=== PATIENT | male | born 1940 | race Caucasian/White ===

== ENCOUNTER 2022-05-11 11:22 | Outpatient (CLI) | payer MEDICARE, SELFPAY ==
[2022-05-11 17:56] LABS: Chloride* 108 mmol/L (96-114); Potassium* 4.7 mmol/L (3.6-5.1); Sodium* 140 mmol/L (135-149)
[2022-05-11 17:59] LABS: Creatinine* 1.4 mg/dL (0.5-1.5); Estimated Glomerular Filt Rate 51 ml/min
[2022-05-11 18:00] LABS: Blood Urea Nitrogen* 28 mg/dL (7-30); Calcium* 8.8 mg/dL (8.4-10.6); Carbon Dioxide* 27 mmol/L (20-32); Glucose* 80 mg/dL (60-115)
== END 2022-05-11 11:23 | disposition home or self-care (01) ==
LOC: LONREF 11:25
PROVIDERS: PCP Family Medicine; Visit Provider Family Medicine
DX: Z01.818 Encounter for other preprocedural examination (principal)
CPT/HCPCS: 80048

== ENCOUNTER 2022-05-31 09:31 | Outpatient (CLI) | payer MEDICARE, SELFPAY | END 2022-05-31 09:32 | disposition home or self-care (01) | PROVIDERS: PCP Family Medicine; Visit Provider Orthopaedic Surgery | DX: Z20.822 Contact with and (suspected) exposure to COVID-19 (principal); Z01.818 Encounter for other preprocedural examination | CPT/HCPCS: 36415; 86850; 86900; 86901; 87635 ==

== ENCOUNTER 2022-06-01 10:12 | Day surgery (SDC) | payer MEDICARE, SELFPAY ==
[2022-06-01] VITALS (22 sets, daily range): BP systolic 86–179; BP diastolic 46–100; PULSE 41–71; RESP 8–16; TEMP 35.7–36.8; O2SAT 96–100; BMI 26.7
[2022-06-01] MEDS: OXYCODONE (CR) 10 MG TAB.ER.12H PO (10:35)
[2022-06-01] MEDS: CELECOXIB 200 MG CAPSULE PO ×2 (10:35→21:12)
[2022-06-01] MEDS: ACETAMINOPHEN 500 MG TABLET 1000 MG PO ×2 (10:35→23:33)
[2022-06-01] MEDS: LACTATED RINGERS 1000 ML 1,000 ML 100 ML IV ×3 (11:00→15:45)
--- NOTE | 2022-06-01 12:06 | SUR.PREOP ---
TIME?OUT:?1100 PT/RN/MDA?VERIFICATION?OF?SURGICAL?SITE,?PROCEDURE,?AND?CONSENT OBTAINED?PRIOR?TO?INVASIVE?PROCEDURE.
[2022-06-01] MEDS: MIDAZOLAM HCL 1 MG/ML inj IVP (12:30)
[2022-06-01] MEDS: fentaNYL 100 MCG/2 ML inj IVP (12:30)
--- NOTE | 2022-06-01 12:36 | P.NB_ITS ---
Nerve Block Nerve Block Time Seen by Provider: 12:36 Date Seen: 06/01/22 Type of block requested by surgeon for post-operative analgesia: SKYLER/LFCN Side: left Time out performed: Yes Verification of patient name: Yes Verification of date of : Yes Site marking: site marked Name of person performing procedure: Avila Continuous monitoring Was continuous monitoring of O2 sat, B/P, medical record librarians teacher, recorded every 15 minutes?: Yes Procedure Checklist: sterile prep, needles and gloves Ultrasound guided. Images saved: Yes Medications given in 5ml increments after negative aspiration: Ropivicaine %: 0.5 mL: 30 Needle gauge: 20 Decadron (mg): 10 Precedex (mcg): 25 Patient tolerated procedure well: Yes Additional comments: Needle noted adjacent to nerve Block Charges Block Charge (with Pro Fee): Other Periph Nerve Block Use of Ultrasound Machine for Block: Yes- US Guidance/pain block
--- NOTE | 2022-06-01 12:41 | SUR.PREOP ---
TIME?OUT:?1215 PT/RN/MDA?VERIFICATION?OF?SURGICAL?SITE,?PROCEDURE,?AND?CONSENT OBTAINED?PRIOR?TO?INVASIVE?PROCEDURE.
--- NOTE | 2022-06-01 12:55 | CRLHL7_ITS ---
For Patients: As a result of the Cures Act, medical imaging exams and procedure reports are released immediately into your electronic medical record. You may view this report before your referring provider. If you have questions, please contact your health care provider. Indication: Hip replacement surgery Technique: AP hip fluoroscopic images. Fluoroscopy time 91.6 seconds. Findings/Impression: Hardware from a left total hip arthroplasty is in satisfactory position. Dictated by Milo Pal MD @ 06/02/2022 3:04:53 PM (Electronically Signed)
[2022-06-01] MEDS: CEFAZOLIN 2 GM INJ IVP (13:30)
[2022-06-01] MEDS: TRANEXAMIC ACID 100 MG/ML INJ 1000 MG IV (13:35)
--- NOTE | 2022-06-01 15:32 | CRLHL7_ITS ---
For Patients: As a result of the Century Cures Act, medical imaging exams and procedure reports are released immediately into your electronic medical record. You may view this report before your referring provider. If you have questions, please contact your health care provider. Indication: HITESH POST OP Technique: AP hip centered pelvis and lateral view left hip. Findings/Impression: Hardware from a left total hip arthroplasty is in satisfactory position. Bone alignment is normal. No sign of acute fracture. Postop changes are within normal limits. Chronic ossicle adjacent to the right greater trochanter and heterotopic calcification along the proximal right thigh. Dictated by Milo Pal MD @ 06/02/2022 3:05:52 PM (Electronically Signed)
--- NOTE | 2022-06-01 15:35 | PM.ORPRC ---
Procedure Note Date of procedure: 06/01/22 Procedure: SURGEON: Jerry Gomes MD POST FORM REMOVER: Kathleen Pemberton PA-C, CALVIN Obrien PREOPERATIVE DIAGNOSIS: Left hip osteoarthritis POSTOPERATIVE DIAGNOSIS: Left hip osteoarthritis NAME OF OPERATION: Left total hip arthroplasty IMPLANTS: 1. [employer] [place] 58 sector ingrowth cup 2. 36 x 58 +4 neutral polyethylene 3. Actis # 9 standard collared ingrowth stem 4. 36 + 1.5 ceramic femoral head ANESTHESIA: General ESTIMATED BLOOD LOSS: 500 cc COMPLICATIONS: None SPECIMENS: None DRAINS: None PREOPERATIVE ANTIBIOTICS: Ancef 2 grams INDICATIONS: The patient is a 81-year-old with a longstanding history of severe, unrelenting left hip pain secondary to end-stage left hip osteoarthritis. Despite appropriate nonoperative management, including activity modification, use of an assist device, anti-inflammatories, [id number] pain medication, physical therapy and injections, they continue to have pain and disability. Operative intervention was offered. The risks, benefits and expected outcomes were discussed in detail. These included but were not limited to: Infection, bleeding, injury to blood vessel or nerve, venous thromboembolism. All questions were answered to their satisfaction. Use of an health information assistant was necessary throughout the case for patient positioning and safety, soft tissue retraction and closure. PROCEDURE: The patient was placed supine on the [place] table. General anesthesia was administered. The health information assistant made sure the patient was properly positioned. The left hip was prepped and draped in the usual sterile fashion. The image intensifier was brought in for a perfect AP pelvis and a perfect double tear drop AP view of each hip which were used for intraoperative templating with our fluoroscopic guide. An oblique incision was made 3 cm distal and 3 cm lateral to the anterior superior iliac spine. The health information assistant retracted the soft tissues to protect them. Subcutaneous dissection was taken with electrocautery to the superficial fascia. The fascia was divided in line with the incision. Blunt dissection was carried medially to the tensor fascia sanjay and sartorius interval. Deep dissection was carried with electrocautery. The circumflex vessels were cauterized and divided. The capsule was exposed and then divided in a T-fashion, tagged with #1 Ethibond sutures. Retractors were placed in the joint, held by the health information assistant. The corkscrew was placed in the femoral head. The neck cut was made in the subcapital region. We made a second neck cut more distal. The napkin ring of bone was removed. The femoral head was removed intact. Acetabular retractors were placed, held by the health information assistant. The labrum was sharply debrided. The capsule was released. The 43 mm reamer was used to the true medial wall. We then enlarged in 2 mm increments using the image intensifier for our reamer placement. We impacted the cup which had excellent purchase. We placed the hole eliminator and the polyethylene. Attention was then turned to the proximal femur. The limb was placed in 140 degrees of external rotation, maximum extension and adduction. A significant amount of time was spent releasing the capsule to allow us to deliver the femur into the wound and complete the femoral side safely. Retractors were held by the health information assistant throughout the femoral preparation. The box sealing inspector and canal finder were used. Broaches were used to a stable size. The calcar reamer was used. Trial components were placed. The hip was reduced and was found to be stable with appropriate soft tissue tension. Length and offset had been nicely restored using the image intensifier and our fluoroscopic guide. Trial components were removed. The stem was impacted. We placed the femoral head. Again, the hip was reduced and was found to be stable with appropriate soft tissue tension. Length and offset had been nicely restored. The health information assistant did a three minute dilute Betadine solution soak. The health information assistant irrigated the wound with 3 liters of normal saline via pulse lavage. The health information assistant repaired the anterior capsule with a #1 Vicryl and our previously placed Ethibond sutures. The health information assistant closed the fascia over the tensor fascia sanjay with a #1 PDO Stratafix, subcutaneous tissues with 2-0 Vicryl, skin with a running 3-0 Stratafix and glue. A dry dressing was applied by the health information assistant. Sponge and needle counts were correct x 2. The patient tolerated the procedure well; there were no apparent complications. They were awakened and extubated in the operating room, sent to the Post-Anesthesia Care Unit in satisfactory condition. PLAN: 1. The patient will be mobilized with physical therapy, weight-bearing as tolerates 2. Xarelto x 5 days then aspirin x 30 days will be used for DVT prophylaxis 3. The patient will be discharged once medically appropriate
--- NOTE | 2022-06-01 16:30 | W.ANESCHARGE ---
Anesthesia Charges Start Date/Time Anesthesia Start Date: 06/01/22 Anesthesia Start Time: 13:19 Stop Date/Time Anesthesia Stop Date: 06/01/22 Anesthesia Stop Time: 16:24 Summary Emergency: No Extremes of Age: Over 71-CPT 99558
--- NOTE | 2022-06-01 16:56 | PM.IMCN1 ---
Date of Consult Consult date: 06/01/22 Requesting Physician: Orthopedics Primary Care Provider: Kostas Carty MD Consult Narrative Narrative: HOSPITALIST CONSULT Hospital Day # 1 Post Op Day # 0 SURGEON:? Jerry Gomes MD NAME OF OPERATION:? Left total hip arthroplasty ANESTHESIA:? General ESTIMATED BLOOD LOSS: ? 500 cc COMPLICATIONS:? None SPECIMENS:? None DRAINS:? None PREOPERATIVE ANTIBIOTICS:? Ancef 2 grams The hospital medicine team was asked by Orthopedic surgery team to manage the patient's intraoperative arrhythmia, history of AAA repair, coronary artery disease. I updated the [facility] histories and Medications and Allergies in the Expanse tabs REVIEW OF SYSTEMS: 12-point ROS completed with patient and negative unless otherwise stated in HPI or below. PHYSICAL EXAM: CODE STATUS: FULL CODE CONSTITUTIONAL: Patient was uncomfortable upon my arrival to the room. He was describing a sensation of needing to burp. Was not sure if he was nauseated. He also was complaining of worsening pain. VITAL SIGNS: see record. HEENT: Normocephalic, atraumatic. PERRL, EOMI, conjunctivae pink, no scleral icterus. Ears and nose externally normal. Pharynx normal. NECK: No JVD. No carotid bruit, no thyromegaly, no adenopathy. CHEST: Clear to auscultation bilaterally - moving air bilaterally. No wheezes. HEART: No harsh murmurs. S1/S2. ABDOMEN: Flat, soft, nontender. Normal bowel sounds. Moderately obese. EXTREMITIES: No edema. MUSCULOSKELETAL: Surgical site is dry. NEURO: Cranial nerves intact. Normal affect. No gross deficits. Speech intelligible. SKIN: No rashes, petechiae, concerning changes PSYCHIATRIC: Euthymic. INVESTIGATIONS: EMR Reviewed Portable chest x-ray, serial ECGs, labs were all obtained. No active ischemia or conduction delay or arrhythmia were noted. One dose of nitro in addition to Maalox and pain management per pursued. He is on telemetry. There has been no further episodes he improved throughout the evening. [facility]; consider 2 night stay. Consider continuing telemetry and or discharge on monitor. DVT: Agree with ortho plan for DVT prevention GI: PO intake [facility] Medical History (Updated 06/01/22 @ 20:36 by Harleen Pedraza MD) Anxiety (03/19/09) Degenerative disc disease, cervical DJD (degenerative joint disease) of knee Hyperlipidemia Hypogonadism in male Right inguinal hernia Spinal stenosis of lumbar region Surgical History (Updated 06/01/22 @ 20:27 by Harleen Pedraza MD) History of colonoscopy Status post abdominal aortic aneurysm (AAA) repair (05/05/18) Status post cataract extraction Status post coronary artery stent placement Family History Brother CHF (congestive heart failure) Mother Lung cancer Social History (Updated 06/01/22 @ 20:23 by Harleen Pedraza MD) 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 Smoking Status: Never smoker Do you use any of these nicotine containing products: None How often do you have a drink containing alcohol: 2-4 times a month Alcohol type: wine How many standard drinks containing alcohol do you have on a typical day: 1 or 2 How often do you have six or more drinks on one occasion: Never AUDIT-C Alcohol total score: 2 Non-prescribed substance use: denies use Caffeine: Yes (coffee, 1-2 cups/day) Meds Home Medications and Allergies Home Medications Medication Instructions Recorded Confirmed Type acetaminophen 650 mg 1,300 mg PO HS 05/11/22 06/01/22 History tablet,extended release alfuzosin 10 mg tablet,extended 10 mg PO DAILY 05/11/22 06/01/22 History release 24 hr atorvastatin 40 mg tablet 40 mg PO HS 05/11/22 06/01/22 History carvedilol 6.25 mg tablet 6.25 mg PO BID 05/11/22 06/01/22 History citalopram 40 mg tablet 40 mg PO DAILY 05/11/22 06/01/22 History finasteride 5 mg tablet 5 mg PO DAILY 05/11/22 06/01/22 History nitroglycerin 0.4 mg sublingual 0.4 mg sublingual Q5M PRN 05/11/22 06/01/22 History tablet psyllium husk 0.52 gram capsule 0.52 g PO DAILY 05/11/22 06/01/22 History famotidine 20 mg tablet 20 mg PO DAILY 06/01/22 06/01/22 History losartan 25 mg tablet 25 mg PO DAILY 06/01/22 06/01/22 History Allergies Allergy/AdvReac Type Severity Reaction Status Date / Time No Known Allergies Allergy Verified 06/01/22 10:36 Exam Const: Vital Signs, click to edit/add: Vital Signs - 24 hr 06/01/22 10:54 06/01/22 12:30 06/01/22 12:35 Temperature 98.0 F 98.2 F 98.2 F Pulse Rate 70 48 L 54 L Respiratory Rate 16 16 16 Blood Pressure 149/100 H 179/95 H 115/72 Pulse Oximetry 96 98 98 Oxygen Delivery Me thod Room Air Nasal Cannula Oxygen Flow Rate 3 06/01/22 12:40 06/01/22 16:19 06/01/22 16:25 Temperature 97.1 F L Pulse Rate 44 L 58 L 52 L Respiratory Rate 16 16 12 Blood Pressure 124/69 116/57 L 100/52 L Pulse Oximetry 98 97 100 Oxygen Delivery Me thod OxyMask Oxygen Flow Rate 6 06/01/22 16:30 06/01/22 16:35 06/01/22 16:40 Temperature Pulse Rate 48 L 47 L 47 L Respiratory Rate 12 14 14 Blood Pressure 102/50 L 97/46 L 104/53 L Pulse Oximetry 100 97 98 Oxygen Delivery Me thod Oxygen Flow Rate 06/01/22 16:45 06/01/22 16:50 Temperature Pulse Rate 45 L 45 L Respiratory Rate 12 12 Blood Pressure 99/77 100/64 Pulse Oximetry 98 97 Oxygen Delivery Me thod Oxygen Flow Rate Assessment and Plan Assessment and plan (1) Status post total hip replacement, left: Problem comment: Hospital medicine team is happy to follow this patient through to discharge. Patient was bradycardic and potentially experienced second-degree heart block during surgery yesterday. Dropped QRS complexes were noted during surgery. He had some relative hypotension as well. Postoperatively he was having some nausea and chest discomfort. Serial EKGs, chest x-ray, labs were all followed. No concerns. He is on telemetry. He did receive 1 dose of nitro which may or may not have alleviated his symptoms. I will recommend to the day team that he discharge on a heart monitor given his history of coronary artery disease without known conduction or valvular abnormalities. Status: Acute (2) Arrhythmia: Problem comment: Some concern for heart block during surgery. He is on telemetry. I monitored ECGs postop. Recommend environmental monitoring technician at discharge. We did order echo should the day team feel this is necessary. Status: Acute (3) Arteriosclerotic cardiovascular disease: Problem comment: Status post [place], coronary artery stents x3 in 2017. Status: Acute (4) Hypertension: Problem comment: Coreg 6.25 mg b.i.d., losartan 12.5 mg daily Status: Acute (5) BPH (benign prostatic hyperplasia): Problem comment: Uroxatral and finasteride, dual therapy Status: Acute (6) Depression: Problem comment: Mild anxiety, Celexa 40 mg daily Status: Acute (7) GERD (gastroesophageal reflux disease): Problem comment: Pepcid and Zantac Status: Acute
[2022-06-01] MEDS: HYDROmorphone 0.5 mg/0.5 ml inj IVP (18:18)
[2022-06-01] MEDS: MAG HYDROX/ALUMINUM HYD/SIMETH 30 ML ORAL.SUSP PO (18:19)
--- NOTE | 2022-06-01 18:29 | CRLHL7_ITS ---
For Patients: As a result of the Cures Act, medical imaging exams and procedure reports are released immediately into your electronic medical record. You may view this report before your referring provider. If you have questions, please contact your health care provider. INDICATION: Chest pressure. TECHNIQUE: Chest 1 views. COMPARISON: None. FINDINGS: Cardiovascular and mediastinum: Heart size and vasculature are normal in caliber and appearance. Lungs and pleural spaces: Lungs are clear. No sign of pleural effusion. No pneumothorax. Bones and soft tissues: No significant findings. IMPRESSION: No acute or significant findings. Dictated by Tiff Garner MD @ 06/01/2022 6:49:09 PM (Electronically Signed)
[2022-06-01] MEDS: ONDANSETRON 2 MG/ML inj 4 MG IVP (18:32)
[2022-06-01] MEDS: NITROGLYCERIN 0.4 MG TAB.SUBL SUBLINGUAL (18:33)
[2022-06-01 18:54] LABS: HCO3 VBG 25 mmol/L (21-28); Ionized Calcium* 1.13 mmol/L (1.11-1.30); PCO2 VBG 41 mmHG (40-50)
[2022-06-01 18:55] LABS: Hematocrit 32.3 % (37.0-53.0); Hemoglobin* 10.7 gm/dL (13.5-17.5); Mean Corpuscular HGB Conc 33 gm/dL (32-36); Mean Corpuscular Hemoglobin 32 pg (26-34); Mean Corpuscular Volume 97 fL (80-100); Platelet Count* 98 K/uL (140-440); Red Blood Count 3.34 m/uL (4.30-5.90); White Blood Count* 7.96 K/uL (4.50-11.00)
[2022-06-01 18:56] LABS: Slide Review Reflex No
[2022-06-01 19:18] LABS: Chloride* 109 mmol/L (96-114); Potassium* 4.5 mmol/L (3.6-5.1); Sodium* 135 mmol/L (135-149)
[2022-06-01 19:21] LABS: Blood Urea Nitrogen* 28 mg/dL (7-30); Carbon Dioxide* 23 mmol/L (20-32); Creatinine* 1.4 mg/dL (0.5-1.5); Estimated Glomerular Filt Rate 51 ml/min
[2022-06-01 19:22] LABS: Calcium* 8.4 mg/dL (8.4-10.6); Glucose* 161 mg/dL (60-115); Magnesium* 1.6 mg/dL (1.5-2.6)
[2022-06-01 19:30] LABS: NT Pro B Type NatriureticPept* 441 PG/mL (0-450)
[2022-06-01] MEDS: LACTATED RINGERS 1000 ML 1,000 ML 75 ML IV (19:42)
[2022-06-01 19:50] LABS: Troponin I* < 0.01 ng/mL (0.01-0.04)
[2022-06-01] MEDS: LACTATED RINGERS 1000 ML 1,000 ML 500 ML IV (20:51)
[2022-06-01] MEDS: ATORVASTATIN CALCIUM 40 MG TABLET PO (21:11)
[2022-06-01] MEDS: SENNOSIDES 1 TAB TABLET 2 TAB PO (21:12)
[2022-06-01] MEDS: CEFAZOLIN 2 GM in 0.9 % SODIUM CHLORIDE Mini-bag 100 ML IVPB (21:18)
--- NOTE | 2022-06-01 23:28 | PC.NURSE ---
shift [id number] Pt this shift arrived from surgery at 1705, pt very lethargic and unable to answer questions. Eyes remained closed, responding with a humming or soft spoken mumbling. Pt was bradycardic with readings between 39-45. Pressures soft at around 96/51 and RR low. Stable on RA at 99%. MD ordered 12 lead, shows normal sinus justin. Pt began c/o of chest pain and feeling like there was a burp stuck, pt point at middle of sternum. Chest xray ordered and showed no abnormalities. Nitroglycerin x1 given with, Dilaudid, Zofran and Maalox, and fluid bolus (see eMAR). pt then resting comfortably. Sql Dba or other RN stayed in the room with pt until stabilized. Around 1930 began holding a conversation and requesting food. While scenario writer talking to pt, pt began swatting at the air in front of him and stated he sees flies or little black dots. Episode lasted about 20min. Updated MD on floaters. Pt able to move legs and adjust self in bed. Denies needing to use the restroom and has remained in bed. Pt declined scheduled tylenol and refuses narcotic pain meds. Discussed fears of addiction r/t narcotics. Sql Dba recognized fears as valid and explained they are there as needed, and that alternative methods can be used first but, highly recommend taking something stronger prior to PT in the morning so that pt may fully participate. Pt agreeable but still hesitant.
[2022-06-02 03:00] VITALS: BP 134/59; PULSE 60; RESP 18; TEMP 36.2; O2SAT 99
[2022-06-02] MEDS: CEFAZOLIN 2 GM in 0.9 % SODIUM CHLORIDE Mini-bag 100 ML IVPB (04:13)
[2022-06-02] MEDS: 0.9 % SODIUM CHLORIDE 500 ML IV (04:48)
--- NOTE | 2022-06-02 05:16 | PC.NURSE ---
[id number]: Patient pleasant and cooperative. Rates pain /. Declined PRN pain medication. Dressing to L. hip C/D/I. CMS intact. A1,walker,GB. Tolerates well. Active ice to op site. Low urine output of 200, bladder scan at 0430 for 30mL. 500 fluid bolus initiated. Denies N/V. Denies chest pain or pressure. VSS.
[2022-06-02] MEDS: ACETAMINOPHEN 500 MG TABLET 1000 MG PO (05:46)
--- NOTE | 2022-06-02 06:41 | W.ANESCHARGE ---
Anesthesia Charges Start Date/Time Anesthesia Start Date: 06/01/22 Anesthesia Start Time: 13:19 Stop Date/Time Anesthesia Stop Date: 06/01/22 Anesthesia Stop Time: 16:24 Summary Emergency: No Extremes of Age: Over 71-CPT 27793
[2022-06-02 06:58] LABS: HCO3 VBG 23 mmol/L (21-28); Lactate* 2.7 mmol/L (0.5-1.9); PCO2 VBG 47 mmHG (40-50); PO2 VBG 39.5 mmHG (25-47); pH VBG 7.304 (7.32-7.43)
[2022-06-02 07:00] VITALS: BP 138/77; PULSE 65; PULSE 76; RESP 18; TEMP 36.2; O2SAT 96
[2022-06-02 07:05] LABS: Hematocrit 28.2 % (37.0-53.0); Hemoglobin* 9.7 gm/dL (13.5-17.5); Mean Corpuscular HGB Conc 34 gm/dL (32-36); Mean Corpuscular Hemoglobin 33 pg (26-34); Mean Corpuscular Volume 97 fL (80-100); Platelet Count* 91 K/uL (140-440); White Blood Count* 8.08 K/uL (4.50-11.00)
[2022-06-02 07:20] LABS: Slide Review Reflex No
[2022-06-02 07:25] LABS: Chloride* 107 mmol/L (96-114)
[2022-06-02 07:26] LABS: Potassium* 4.6 mmol/L (3.6-5.1); Sodium* 135 mmol/L (135-149)
[2022-06-02 07:28] LABS: Creatinine* 1.6 mg/dL (0.5-1.5); Est. Creatinine Clearance* 44.01; Estimated Glomerular Filt Rate 43 ml/min
[2022-06-02 07:29] LABS: Blood Urea Nitrogen* 36 mg/dL (7-30); Calcium* 8.1 mg/dL (8.4-10.6); Carbon Dioxide* 21 mmol/L (20-32); Glucose* 173 mg/dL (60-115)
[2022-06-02 07:45] LABS: Troponin I* < 0.01 ng/mL (0.01-0.04)
[2022-06-02 07:57] LABS: Thyroid Stimulating Hormone* 0.733 uIU/mL (0.270-4.20)
[2022-06-02] MEDS: SENNOSIDES 1 TAB TABLET 2 TAB PO (09:29)
[2022-06-02] MEDS: FAMOTIDINE 20 MG TABLET PO (09:29)
[2022-06-02] MEDS: RIVAROXABAN 10 MG TABLET PO (09:29)
[2022-06-02] MEDS: CITALOPRAM HYDROBROMIDE 20 MG TABLET 40 MG PO (09:30)
[2022-06-02] MEDS: FINASTERIDE 5 MG TABLET PO (09:31)
--- NOTE | 2022-06-02 09:49 | PM.ORPN ---
Subjective Subjective Time Seen by Provider: 08:30 Date Seen: 06/02/22 Principal diagnosis: Status post left hip replacement Interval history: Rodrick is comfortable at rest this morning. He has not gotten out of bed and ambulated yet. He had an intraop a rhythm me a and bradycardia. He dropped QRS complexes. He therefore may or may not discharge today. Upon discharge she plans to go home, he will have assistance in the home. Ortho Exam Narrative Exam Narrative: Alert and oriented x3. Patient is in no acute distress. Converses without labored breathing. Hearing is grossly intact. Delete that Examination of the left hip shows ecchymosis is present on both sides of the dressing. Dressing is intact. Mild anterior thigh pain with palpation. Minimal soft tissue edema about the left hip. CMS is intact left lower extremity. Bilateral calves are soft and nontender. Const Vital Signs, click to edit/add: Vital Signs - 24 hr 06/01/22 10:54 06/01/22 12:30 06/01/22 12:35 Temperature 98.0 F 98.2 F 98.2 F Pulse Rate 70 48 L 54 L Pulse Rate [Left Pulse Oximeter] Respiratory Rate 16 16 16 Blood Pressure 149/100 H 179/95 H 115/72 Blood Pressure [Right Arm] Pulse Oximetry 96 98 98 Oxygen Delivery Method Room Air Nasal Cannula Oxygen Flow Rate 3 06/01/22 12:40 06/01/22 16:19 06/01/22 16:25 Temperature 97.1 F L Pulse Rate 44 L 58 L 52 L Pulse Rate [Left Pulse Oximeter] Respiratory Rate 16 16 12 Blood Pressure 124/69 116/57 L 100/52 L Blood Pressure [Right Arm] Pulse Oximetry 98 97 100 Oxygen Delivery Method OxyMask Oxygen Flow Rate 6 06/01/22 16:30 06/01/22 16:35 06/01/22 16:40 Temperature Pulse Rate 48 L 47 L 47 L Pulse Rate [Left Pulse Oximeter] Respiratory Rate 12 14 14 Blood Pressure 102/50 L 97/46 L 104/53 L Blood Pressure [Right Arm] Pulse Oximetry 100 97 98 Oxygen Delivery Method Oxygen Flow Rate 06/01/22 16:45 06/01/22 16:50 06/01/22 19:27 Temperature 97.2 F L Pulse Rate 45 L 45 L 51 L Pulse Rate [Left Pulse Oximeter] Respiratory Rate 12 12 Blood Pressure 99/77 100/64 Blood Pressure [Right Arm] Pulse Oximetry 98 97 Oxygen Delivery Method Oxygen Flow Rate 06/01/22 17:30 06/01/22 17:45 06/01/22 18:00 Temperature 96.2 F L Pulse Rate Pulse Rate [Left Pulse Oximeter] 41 L 43 L 44 L Respiratory Rate 9 L 9 L 10 L Blood Pressure Blood Pressure [Right Arm] 97/54 L 96/52 L 108/58 L Pulse Oximetry 99 99 97 Oxygen Delivery Method Room Air Room Air Room Air Oxygen Flow Rate 06/01/22 18:15 06/01/22 18:45 06/01/22 17:05 Temperature 98.2 F Pulse Rate 43 L Pulse Rate [Left Pulse Oximeter] 44 L 49 L Respiratory Rate 10 L 12 Blood Pressure Blood Pressure [Right Arm] 105/48 L 86/50 L 96/51 L Pulse Oximetry 98 Oxygen Delivery Method Room Air Room Air Room Air Oxygen Flow Rate 06/01/22 19:00 06/01/22 20:00 06/01/22 21:55 Temperature Pulse Rate Pulse Rate [Left Pulse Oximeter] 48 L 56 L 71 Respiratory Rate 8 L 9 L 12 Blood Pressure Blood Pressure [Right Arm] 102/49 L 112/66 104/62 Pulse Oximetry 100 100 100 Oxygen Delivery Method Room Air Nasal Cannula Nasal Cannula Room Air Oxygen Flow Rate 5 1 06/01/22 23:00 06/01/22 23:00 06/01/22 23:00 Temperature 96.9 F L 96.9 F L Pulse Rate 62 58 L Pulse Rate [Left Pulse Oximeter] 62 Respiratory Rate 16 16 Blood Pressure Blood Pressure [Right Arm] 120/69 120/69 Pulse Oximetry 100 Oxygen Delivery Method Room Air Room Air Oxygen Flow Rate 06/02/22 03:00 06/02/22 07:00 06/02/22 07:00 Temperature 97.1 F L 97.1 F L Pulse Rate Pulse Rate [Left Pulse Oximeter] 60 76 76 Respiratory Rate 18 18 18 Blood Pressure Blood Pressure [Right Arm] 134/59 L 138/77 Pulse Oximetry 99 96 Oxygen Delivery Method Room Air Room Air Oxygen Flow Rate 0 Assessment and Plan Assessment and plan (1) Status post total hip replacement, left: Problem details: 06/01/2022 Status: Acute Assessment and Plan: Plan for discharge is today to home if they meet discharge criteria. DVT prophylaxis includes Xarelto 10 mg daily for total of 5 days, then aspirin 81 mg twice daily for 30 days, Ananda stockings x1 month may remove for 1 hr per day, frequent ambulation Remove dressing 1 week. Observe wound and phone Orthopedics with any questions or concerns Use Ice on operative hip unrestricted. Return to clinic in 1 week with PA for a wound check Return to clinic in [address] Gomes Minimize narcotic use. Wean off and discontinue soon as possible. Activities as tolerated. No strenuous activity. Attend outpt PT Rodrick does not plan on using any narcotic pain medication, therefore I have sent oxycodone to his pharmacy with half the quantity, #20. He will only pick it up at the pharmacy if he feels he needs it. We discussed that he currently has a nerve block and his pain level can change drastically when that has worn off. I have also informed his pharmacy that he may choose not to molded goods spot picker this medication. (2) Arrhythmia: Problem details: Some concern for heart block during surgery. He is on telemetry. I monitored ECGs postop. Recommend refrigeration engine operator at discharge. We did order echo should the day team feel this is necessary. Status: Acute (3) Arteriosclerotic cardiovascular disease: Problem details: Status post CA, coronary artery stents x3 in 2017. Status: Acute (4) Hypertension: Problem details: Coreg 6.25 mg b.i.d., losartan 12.5 mg daily Status: Acute (5) BPH (benign prostatic hyperplasia): Problem details: Uroxatral and finasteride, dual therapy Status: Acute (6) Depression: Problem details: Mild anxiety, Celexa 40 mg daily Status: Acute (7) GERD (gastroesophageal reflux disease): Problem details: Pepcid and Zantac Status: Acute
--- NOTE | 2022-06-02 12:24 | PC.NURSE ---
Reviewed d/c info with pt and significant other. Educated pt on Xarelto use and switching to Aspirin after 4 days, both verbalized understanding. OT set up pt with foot strap at d/c. f/u appointments confirmed and pt verbalized understanding. PT appt set up. IV out and belongings form reviewed and signed. pt and S.O. denied any further questions. Pt discharged off unit 1230.
--- NOTE | 2022-06-02 17:12 | PM.DS1 ---
DS: Providers Provider Date Seen: 06/02/22 Primary care physician: Kostas Carty MD Attending Physician on discharge: Jerry Gomes MD Date of Discharge: 06/02/22 DS: Diagnosis Discharge Diagnosis (1) Heart block atrioventricular: Status: Acute Problem details: Two brief episodes of AV block with sinus bradycardia with P waves at a rate in the 40s but dropped QRS waves on 1 occasion for about 20 seconds and the other for about 6 seconds during anesthesia. There was not a progressive prolongation of [place] interval but an underlying first-degree AV block was present. Resolved with observation overnight off carvedilol. I discussed with his shuttle final inspector, Dr. Millan, of the [facility] in [place] a plan for ongoing management. At this time we will stop the carvedilol and obtain outpatient cardiac monitoring to further evaluate. (2) Status post total hip replacement, left: Status: Acute Problem details: 06/01/2022. Did well with surgery except for the heart block. He did drop his hemoglobin from 13.8 at his preop physical to 9.7 postop day 1. He is not having lightheadedness or hypotension. (3) Arteriosclerotic cardiovascular disease: Status: Acute Problem details: Status post NH, coronary artery stents x3 in 2017. Asymptomatic. DS: Summary Hospital Course Hospital Course: 81-year-old male admitted to the hospital for elective hip arthroplasty. Procedure was complicated by moderate bleeding and 2 episodes of heart block during the surgery. One that I have a strip for shows a 6 second period of time where he has regular P waves and no QRS complexes. The other episode was apparently 20 seconds in duration. Both resolved without intervention. These occurred while he was under anesthesia. Preoperatively patient had a 1st degree AV block on his electrocardiogram. Postoperatively evaluation showed that he had sinus bradycardia with an EKG showing a pulse of 45 and a 1st degree AV block. Troponin was negative. Patient was entirely asymptomatic. His carvedilol was held. He had telemetry monitoring overnight. His heart rate was in the upper 50s and low 60s overnight. Other vital signs remained normal. He remained entirely symptomatic. This morning he is feeling well and making good progress with physical therapy. He has no concerns. Status at Discharge Functional status at discharge: uses cane/walker Overall status at discharge: patient is progressing back to baseline Time Spent with Patient Time attestation: Total time spent providing and/or coordinating discharge services: Exam Narrative: Exam Narrative: He is alert and appears in no distress. Speech is normal. He is oriented to his circumstances. He is observed to move with a walker fairly well. Respirations are clear to auscultation. Cardiovascular: S1, S2, regular rate and rhythm. No murmur gallop or rub. Abdomen is soft without tenderness. Extremities without edema. Good peripheral pulses. Const: Vital Signs, click to edit/add: Vital Signs - 24 hr 06/01/22 19:27 06/01/22 17:30 06/01/22 17:45 Temperature 96.2 F L Pulse Rate 51 L Pulse Rate [Left P ulse Oximeter] 41 L 43 L Respiratory Rate 9 L 9 L Blood Pressure [Ri ght Arm] 97/54 L 96/52 L Pulse Oximetry 99 99 Oxygen Delivery Me thod Room Air Room Air Oxygen Flow Rate 06/01/22 18:00 06/01/22 18:15 06/01/22 18:45 Temperature Pulse Rate Pulse Rate [Left P ulse Oximeter] 44 L 44 L 49 L Respiratory Rate 10 L 10 L Blood Pressure [Ri ght Arm] 108/58 L 105/48 L 86/50 L Pulse Oximetry 97 98 Oxygen Delivery Me thod Room Air Room Air Room Air Oxygen Flow Rate 06/01/22 19:00 06/01/22 20:00 06/01/22 21:55 Temperature Pulse Rate Pulse Rate [Left P ulse Oximeter] 48 L 56 L 71 Respiratory Rate 8 L 9 L 12 Blood Pressure [Ri ght Arm] 102/49 L 112/66 104/62 Pulse Oximetry 100 100 100 Oxygen Delivery Me thod Room Air Nasal Can nula Nasal Cannula Room Air Oxygen Flow Rate 5 1 06/01/22 23:00 06/01/22 23:00 06/01/22 23:00 Temperature 96.9 F L 96.9 F L Pulse Rate 62 58 L Pulse Rate [Left P ulse Oximeter] 62 Respiratory Rate 16 16 Blood Pressure [Ri ght Arm] 120/69 120/69 Pulse Oximetry 100 Oxygen Delivery Me thod Room Air Room Air Oxygen Flow Rate 06/02/22 03:00 06/02/22 07:00 06/02/22 07:00 Temperature 97.1 F L 97.1 F L Pulse Rate Pulse Rate [Left P ulse Oximeter] 60 76 76 Respiratory Rate 18 18 18 Blood Pressure [Ri ght Arm] 134/59 L 138/77 Pulse Oximetry 99 96 Oxygen Delivery Me thod Room Air Room Air Oxygen Flow Rate 0 06/02/22 07:00 Temperature Pulse Rate 65 Pulse Rate [Left P ulse Oximeter] Respiratory Rate Blood Pressure [Ri ght Arm] Pulse Oximetry Oxygen Delivery Me thod Oxygen Flow Rate Documenting provider has reviewed patient's vital signs: yes DS: Data Data Completed and Pending Labs on day of discharge: Labs from last 24 hours 06/02/22 06/02/22 06/02/22 06:32 06:32 06:32 WBC RBC Hgb Hct MCV MCH MCHC Plt Count VBG pH 7.304 L VBG pCO2 47 VBG pO2 39.5 VBG HCO3 23 Sodium 135 Potassium 4.6 Chloride 107 Carbon Dioxide 21 BUN 36 H Creatinine 1.6 H Estimated Creat Clear 44.01 Estimated GFR 43 Glucose 173 H Lactate 2.7 H Calcium 8.1 L Ionized Calcium Jonel Magnesium Troponin I < 0.01 L NT-Pro-B Natriuret Pep TSH 0.733 06/02/22 06/01/22 06/01/22 06:32 18:50 18:50 WBC 8.08 RBC 2.90 L Hgb 9.7 L Hct 28.2 L MCV 97 MCH 33 MCHC 34 Plt Count 91 L VBG pH 7.390 VBG pCO2 41 VBG pO2 VBG HCO3 25 Sodium 135 Potassium 4.5 Chloride 109 Carbon Dioxide 23 BUN 28 Creatinine 1.4 Estimated Creat Clear 50.30 Estimated GFR 51 Glucose 161 H Lactate 2.0 H Calcium 8.4 Ionized Calcium Jonel 1.13 Magnesium 1.6 Troponin I < 0.01 L NT-Pro-B Natriuret Pep 441 TSH 06/01/22 18:50 WBC 7.96 RBC 3.34 L Hgb 10.7 L Hct 32.3 L MCV 97 MCH 32 MCHC 33 Plt Count 98 L VBG pH VBG pCO2 VBG pO2 VBG HCO3 Sodium Potassium Chloride Carbon Dioxide BUN Creatinine Estimated Creat Clear Estimated GFR Glucose Lactate Calcium Ionized Calcium Jonel Magnesium Troponin I NT-Pro-B Natriuret Pep TSH Discharge Plan Discharge Disposition: Home, Self-Care Discharging Surgeon: Jerry Gomes Follow-Up Appointment: 1 week Prescriptions: New Xarelto 10 mg Tablet 10 mg PO DAILY 4 Days Qty: 4 0RF Rx Instructions: for DVT prophylaxis, take this medication daily for 4 days then Aspirin 81mg twice daily for 30 days sennosides [Senna Lax] 8.6 mg Tablet 17.2 mg PO BID PRN (Reason: constipation) Qty: 100 0RF Rx Instructions: for narcotic related constipation acetaminophen 500 mg Tablet 500 - 1,000 mg PO Q6H MDD 4000mg PRNQty: 100 0RF oxycodone 5 mg Tablet 2.5 - 5 mg PO Q4-6H MDD 6 tabs per day PRN (Reason: Pain) Qty: 20 0RF Rx Instructions: minimize and discontinue as soon as possible aspirin 81 mg capsule 81 mg PO BID 30 Days Qty: 60 0RF Rx Instructions: for DVT prophylaxis, take this twice daily for 30 days after you have finished Xarelto Discontinued carvedilol 6.25 mg tablet 6.25 mg PO BID No Action nitroglycerin 0.4 mg tablet, sublingual 0.4 mg sublingual Q5M PRN psyllium husk 0.52 gram capsule 0.52 g PO DAILY acetaminophen 650 mg tablet extended release 1,300 mg PO HS citalopram 40 mg tablet 40 mg PO DAILY finasteride 5 mg tablet 5 mg PO DAILY atorvastatin 40 mg tablet 40 mg PO HS alfuzosin 10 mg tablet extended release 24 hr 10 mg PO DAILY famotidine 20 mg tablet 20 mg PO DAILY losartan 25 mg tablet 25 mg PO DAILY Activity Level: Activity as Tolerated and No strenuous activity Activity Detail: Keep dressing on for 1 week. Dressing is waterproof. May shower. Surgical glue covers the wound. Attend outpatient physical therapy if scheduled. Ice operative extremity without restriction. Wear compression stockings for 1 month post surgery. May remove for 1 hour per day. Ambulate every hour throughout the day. Do not drive while taking narcotic pain medication. Do not drink alcohol while taking narcotic pain medication. May drive when safe to do so and have full function of the extremities, this may take 6 weeks or more. Notify Orthopedics with any questions or concerns. ([phone]) Discharge Diet: Regular Patient Instructions: Acetaminophen (By mouth), Aspirin (By mouth), Oxycodone, Rapid Release (By mouth), Rivaroxaban (By mouth), Senna (By mouth), Surgical Site Infections (DC), Total Hip Replacement (DC) Additional Instructions: I spoke with her shuttle final inspector, Dr. Aftab Hanna, about your heart block. He would like to have you wear a heart monitor when you go home. His office will contact you to set that up. In the meantime I want you to stop taking your carvedilol because it is likely making the problem worse. Forms: Work/Release Restrictions Follow-up: Toya Hugo PA-C [Physician Ophthalmic Technician Apprentice] - 06/09/22 11:00 am Kostas Carty MD [Primary Care Provider] - (Schedule appointment as needed) Discharge Orders: Discharge Order (Routine); Ordered 06/02/22 Ordered By: Randall Khan
--- NOTE | 2022-06-04 12:05 | SUR.PHASEI ---
Case verified with Cary KINGSLEY.
== END 2022-06-02 12:30 | disposition home or self-care (01) ==
LOC: OR 10:13 → MEDSURG 13:36
PROVIDERS: Family Medicine; PCP Family Medicine; Visit Provider Orthopaedic Surgery
PROC: (CPT 27130; principal; 2022-06-01 12:30)
DX: M16.12 Unilateral primary osteoarthritis, left hip (principal); I44.0 Atrioventricular block, first degree; R00.1 Bradycardia, unspecified; I25.10 Atherosclerotic heart disease of native coronary artery without angina pectoris; F41.9 Anxiety disorder, unspecified; M50.30 Other cervical disc degeneration, unspecified cervical region; E78.5 Hyperlipidemia, unspecified; M48.061 Spinal stenosis, lumbar region without neurogenic claudication; I10 Essential (primary) hypertension; N40.0 Benign prostatic hyperplasia without lower urinary tract symptoms; F32.A Depression, unspecified; K21.9 Gastro-esophageal reflux disease without esophagitis; I25.2 Old myocardial infarction
CPT/HCPCS: 27130; 01214; 36415; 64450; 71045; 73501; 73502; 76000; 76942; 80048; 82330; 82803; 83605; 83735; 83880; 84443; 84484; 85025; 85027; 97110; 97116; 97162; 97165; 97530; 97535; 99100; G0378; A9270; C1776; J0330; J0690; J1100; J1170; J2250; J2370; J2405; J2704; J2710; J2795; J3010; J7120

== ENCOUNTER 2022-06-07 11:25 | Outpatient (CLI) | payer MEDICARE, SELFPAY | END 2022-06-07 11:26 | disposition home or self-care (01) | PROVIDERS: PCP Family Medicine; Visit Provider Family Medicine | DX: I44.30 Unspecified atrioventricular block (principal); I49.9 Cardiac arrhythmia, unspecified | CPT/HCPCS: 93225; 93226 ==

== ENCOUNTER 2022-06-22 09:00 | Outpatient (RCR) | payer MEDICARE, SELFPAY ==
--- NOTE | 2022-05-25 14:21 | PT.OPE ---
PT [facility] PT [facility] Eval Start: 05/25/22 08:23 Freq: Status: Active Protocol: Document 05/25/22 08:30 LSL (Rec: 05/25/22 08:34 LSL [id number]) E-signed By Park Mitchell PT Physical Therapy Outpatient Evaluation Insurance Information Insurance Name Medicare B,Blue Cross/Blue Shield Insurance Information/Comments Medicare BCBS Blue Advantage Medical Diagnosis L hip primary OA s/p L HITESH 06/01/22 Treating Diagnosis pain, weakness, impaired ROM, impaired mobility Referring MD Gomes Subjective Subjective Pt. describes a constant ache in the lateral left hip and it worsens if he is on it for a long time. Pt. would like to be able to walk and play golf with less pain. Currently unable to make it around the block. Pain Comments 1/10 best, 7-8/10 worst Date of Last Physician Visit 02/25/22 Date of Next Physician Visit 06/01/22 Date of Surgery (If applicable) 06/01/22 Current Work Status Retired Preferred Name Rodrick Precautions Treatment Precautions/Contraindications 2017 STENT placed 2018 AA repaired Weight Bearing Status Full Weight Bearing Therapy Limitations/Systems Review Other Medical Problem Objective Range of Motion WFL B LE Strength Hip - L hip abduction 4+/5, all others B 5/5 Knee - B 5/5 Trunk - upper abdominals 2/5 Swelling L knee Palpation R hip iliopsoas insertion and TFL tender to touch, ITB mildly tender Balance & Gait GAIT - mildly to moderately antalgic with decreased stance L BALANCE - B poor Posture Upright with forward head Sensation/Reflexes Intact Assessment Assessment/Impression Pt. is an 81 y/o male who presents for his pre-op L HITESH appointment. He is generally strong with good ROM but with impaired gait and SLB B. His significant other will be available to help post operatively. His pain is not currently too intense unless he attempts to walk for community ambulation. Post-op treatment will be geared toward improving his gait, balance and dealing with any muscle tightness and weakness that develops using therex, NM re-ed, gait training and manual therapy with modalities prn. Primary Functional Limitations walking Plan of Care Rehabilitation Potential Excellent Physical Therapy Goals SHORT TERM GOALS: (2-3 weeks) 1. Pt. able to ambulate 200 feet with SPC. 2. Pt. able to independently don/doff clothing. 3. Pt. independent in car transfers. RETIREMENT GOALS: (4+ weeks) 1. Pt. able to ambulate independently for 20+ minutes with pain less than 2/10. 2. Pt. able to ascend and descend stairs with pain less than 2/10. 3. Pt. able to resume playing golf. 4. Improved SL balance to 10 seconds per leg to decrease risk of falls. Coordination/Communication With Referral Source Treatment Plan/Direct Interventions Gait Training,Ice/Cold/ Vasopneumatic,Joint Mobilization,Manual Therapy, Neuromuscular Re-ed,Self-Care/ Home Management,Therapeutic Exercises Frequency/Duration 2x/week 6 weeks decreasing as appropriate Patient Will Be Discharged From Therapy Completion of LTG(s),Skills Plateau,Independent w/HEP, Independently Progressing Evaluation Billing Untimed Code Treatment Minutes 35 PT Eval No Charge No Complexity Low Certification Information Initial Certification Date 05/25/22 Ending Certification Date 07/30/22 Provider Signature Shows Agreement With POC & Medical Necessity Physician Comment/Change Comment or Changes Physician NPI Number #
== END 2022-07-08 14:40 | disposition home or self-care (01) ==
PROVIDERS: PCP Family Medicine; Visit Provider Orthopaedic Surgery
DX: Z96.642 Presence of left artificial hip joint (principal); M16.12 Unilateral primary osteoarthritis, left hip; M25.552 Pain in left hip; R53.1 Weakness; R26.89 Other abnormalities of gait and mobility; Z51.89 Encounter for other specified aftercare
CPT/HCPCS: 97110; 97140; 97161; 97164

== ENCOUNTER 2023-04-12 08:44 | Outpatient (CLI) | payer MEDICARE, SELFPAY ==
--- NOTE | 2023-04-12 09:00 | CT_ITS ---
Patient: ADRIANE LOMBARDI Facility:?[facility] Patient ID:?[id number] Site Patient ID:?[id number]. Site :?[id number] Study:?CT-Head WITHOUT-04/12/2023 9:18:11 AM Ordering Physician:Rj Sotomayor Final Report: INDICATION: Cognitive decline. TECHNIQUE: CT of the head without contrast. Coronal and sagittal reformats. Bone and soft tissue algorithms. COMPARISON: No prior studies available for comparison at this institution. FINDINGS: No acute intracranial hemorrhage. The pittman-white matter interface is preserved. Mild-moderate global parenchymal and mesial temporal volume loss with associated ex vacuo prominence of the supratentorial ventricles. Skull base and calvarium appear within normal limits. There is evidence of prior cataract surgery. The paranasal sinuses and mastoid air cells are predominantly clear. IMPRESSION: No acute intracranial abnormality. Mild-moderate global parenchymal and mesial temporal volume loss. Please note that all CT scans at this facility use dose modulation, iterative reconstruction, and/or weight-based dosing when appropriate to reduce radiation dose to as low as reasonably achievable. Dictated by Alexys Severino MD @ 04/12/2023 12:32:20 PM Signed by:?Alexys Severino MD @04/12/2023 12:32:20 PM (Electronic Signature)
== END 2023-04-12 08:45 | disposition home or self-care (01) ==
LOC: CT 08:47
PROVIDERS: PCP Family Medicine; Visit Provider Psychiatry & Neurology Neurology
DX: R41.89 Other symptoms and signs involving cognitive functions and awareness (principal)
CPT/HCPCS: 70450

== ENCOUNTER 2023-04-18 17:17 | Outpatient (REF) | payer MEDICARE, SELFPAY ==
[2023-04-18 17:41] LABS: Hematocrit 42.4 % (37.0-53.0); Hemoglobin* 13.7 gm/dL (13.5-17.5); Mean Corpuscular HGB Conc 32 gm/dL (32-36); Mean Corpuscular Hemoglobin 31 pg (26-34); Mean Corpuscular Volume 97 fL (80-100); Platelet Count* 146 K/uL (140-440); Red Blood Count 4.37 m/uL (4.30-5.90); White Blood Count* 4.27 K/uL (4.50-11.00)
[2023-04-18 17:46] LABS: Slide Review Reflex No
[2023-04-18 19:46] LABS: Vitamin B12* 324 pg/mL (243-894)
== END 2023-04-18 17:18 | disposition home or self-care (01) ==
LOC: NPINS 17:17
PROVIDERS: PCP Family Medicine; Visit Provider Psychiatry & Neurology Neurology
DX: R41.89 Other symptoms and signs involving cognitive functions and awareness (principal)
CPT/HCPCS: 82607; 84443; 85027

== ENCOUNTER 2023-08-16 13:45 | Outpatient (CLI) | payer MEDICARE, SELFPAY | END 2023-08-16 13:46 | disposition home or self-care (01) | LOC: LKVREF 13:46 | PROVIDERS: PCP Family Medicine; Visit Provider Family Medicine | DX: E78.5 Hyperlipidemia, unspecified (principal) | CPT/HCPCS: 80061 ==

== ENCOUNTER 2024-12-13 11:24 | Outpatient (CLI) | payer MEDICARE, SELFPAY | END 2024-12-13 11:25 | disposition home or self-care (01) | PROVIDERS: PCP Family Medicine; Visit Provider Emergency Medicine | DX: D64.9 Anemia, unspecified (principal); R10.9 Unspecified abdominal pain | CPT/HCPCS: 82728; 83540; 83550 ==

== ENCOUNTER 2025-01-07 07:53 | Outpatient (CLI) | payer MEDICARE, SELFPAY ==
--- NOTE | 2025-01-07 09:45 | P.ANES_ITS ---
Anesthesia Charges Start Date/Time Anesthesia Start Date: 01/07/25 Anesthesia Start Time: 09:02 Stop Date/Time Anesthesia Stop Date: 01/07/25 Anesthesia Stop Time: 09:40 Summary Extremes of Age - Over 70 or under 1: MDA Coding CPT Codes CPT Codes: ANES UPR LWR GI NDSC PX - 14903 ([id number]) QK - LAMP WIRER 2-4 CNCRNT ANES PROC, QX - BOAT HOIST OPERATOR SVC W/ MD MED DIRECTION, P3 - PATIENT W/SEVERE SYS DISEASE Additional Codes: Summary - Extremes of Age - Over 70 or under 1: MDA ([id number])
--- NOTE | 2025-01-07 09:46 | P.ANES_ITS ---
Anesthesia Charges Start Date/Time Anesthesia Start Date: 01/07/25 Anesthesia Start Time: 09:02 Stop Date/Time Anesthesia Stop Date: 01/07/25 Anesthesia Stop Time: 09:40 Summary Extremes of Age - Over 70 or under 1: CHAIN REPAIRER Coding CPT Codes CPT Codes: ANES UPR LWR GI NDSC PX - 87610 ([id number]) P3 - PATIENT W/SEVERE SYS DISEASE, QX - CHAIN REPAIRER SVC W/ MD MED DIRECTION, QK - NETWORK SYSTEMS ADMINISTRATOR 2-4 CNCRNT ANES PROC Additional Codes: Summary - Extremes of Age - Over 70 or under 1: CHAIN REPAIRER ([id number])
--- NOTE | 2025-01-07 09:46 | W.ANESCHARGE ---
Anesthesia Charges Start Date/Time Anesthesia Start Date: 01/07/25 Anesthesia Start Time: 09:02 Stop Date/Time Anesthesia Stop Date: 01/07/25 Anesthesia Stop Time: 09:40 Summary Extremes of Age - Over 70 or under 1: FILAMENT TESTER Coding CPT Codes CPT Codes: ANES UPR LWR GI NDSC PX - 16807 ([id number]) P3 - PATIENT W/SEVERE SYS DISEASE, QX - FILAMENT TESTER SVC W/ MD MED DIRECTION, QK - PAYMENT COLLECTOR 2-4 CNCRNT ANES PROC Additional Codes: Summary - Extremes of Age - Over 70 or under 1: FILAMENT TESTER ([id number])
== END 2025-01-07 07:54 | disposition home or self-care (01) ==
LOC: OP CLINIC 07:54
PROVIDERS: PCP Family Medicine; Visit Provider Surgery
DX: D50.9 Iron deficiency anemia, unspecified (principal); D12.3 Benign neoplasm of transverse colon; K57.30 Diverticulosis of large intestine without perforation or abscess without bleeding; K44.9 Diaphragmatic hernia without obstruction or gangrene
CPT/HCPCS: 00813; 43239; 45385; 88305; 99100; J2704; J3490

== ENCOUNTER 2025-01-15 09:37 | Outpatient (CLI) | payer MEDICARE, SELFPAY | END 2025-01-15 09:38 | disposition home or self-care (01) | LOC: NFLDREF 01-22 23:48 | PROVIDERS: PCP Family Medicine; Referring Provider Family Medicine; Visit Provider Internal Medicine Nephrology | DX: N18.2 Chronic kidney disease, stage 2 (mild) (principal); D69.6 Thrombocytopenia, unspecified; E29.1 Testicular hypofunction | CPT/HCPCS: 82043; 82570 ==

== ENCOUNTER 2025-01-22 08:52 | Outpatient (CLI) | payer MEDICARE, SELFPAY ==
--- NOTE | 2025-01-22 09:15 | CRLHL7_ITS ---
For Patients: As a result of the Century Cures Act, medical imaging exams and procedure reports are released immediately into your electronic medical record. You may view this report before your referring provider. If you have questions, please contact your health care provider. CLINICAL HISTORY: Chronic Kidney Disease stage 3a COMPARISON: CT 07/03/2015 TECHNIQUE: Guerrero scale and color Doppler images were acquired of the kidneys and urinary bladder. FINDINGS: Simple cyst lower pole right kidney measures 2.1 x 2.1 x 2.3 cm. Prominence of the left renal pelvis at the inferior pole persists after voiding. The right kidney measures 9.6cm in length and the left kidney measures 9.9cm in length. The renal cortex appears of normal thickness. Color Doppler images reveal a normal appearance of both ureteral jets. Prevoid bladder volume 55 cc. Postvoid bladder volume 22 cc. IMPRESSION: Pelviectasis involving the inferior pole of the left kidney. Simple right renal cyst. Dictated by Milo Pal MD @ 01/22/2025 10:38:02 AM (Electronically Signed)
== END 2025-01-22 08:53 | disposition home or self-care (01) ==
LOC: US 08:53
PROVIDERS: PCP Family Medicine; Visit Provider Internal Medicine Nephrology
DX: N18.31 Chronic kidney disease, stage 3a (principal); N28.1 Cyst of kidney, acquired
CPT/HCPCS: 76770

== ENCOUNTER 2025-04-12 14:35 | Outpatient (CLI) | payer MEDICARE, SELFPAY ==
--- NOTE | 2025-04-12 15:00 | CRLHL7_ITS ---
For Patients: As a result of the Century Cures Act, medical imaging exams and procedure reports are released immediately into your electronic medical record. You may view this report before your referring provider. If you have questions, please contact your health care provider. Indication: CKD STAGE 2, LT RENAL PELVIECTASIS Technique: CT Abdomen/Pelvis 100CC ISOVUE 370 intravenous contrast urogram with and without contrast Please note that all CT scans at this facility use dose modulation, iterative reconstruction, and/or weight-based dosing when appropriate to reduce radiation dose to as low as reasonably achievable. Comparison: 07/03/2015 CT, 01/22/2025 ultrasound Findings: Noncontrast enhanced images demonstrate no evidence of renal, ureteral or bladder stone. Mild scarring in both lung bases. No intrahepatic mass. Stable cyst within the left hepatic lobe. Layering stones in the gallbladder. Spleen is similar. Normal pancreas. Adrenal glands are unremarkable. Simple cyst posterior right kidney is stable. Left renal parapelvic cysts are unchanged. No solid renal mass or hydronephrosis. Normal opacification of the ureters. Atherosclerotic changes with ectasia of the aorta measuring 2.9 cm. Ectatic left common iliac artery. Mass effect of the prostate upon the inferior bladder. Fat filled right inguinal hernia. Sigmoid diverticulosis. No diverticulitis. No bowel obstruction. Appendix is normal. Multilevel degenerative changes. No acute fracture. Degenerative joint disease right hip. Left hip replacement hardware. Impression: No renal, ureteral or bladder stone. No hydronephrosis. Chronic simple right renal cyst and simple left renal parapelvic cysts. Please note that all CT scans at this facility use dose modulation, iterative reconstruction, and/or weight-based dosing when appropriate to reduce radiation dose to as low as reasonably achievable. Dictated by Milo Pal MD @ 04/14/2025 8:15:56 PM (Electronically Signed)
[2025-04-12 15:08] LABS: Creatinine* 1.3 mg/dL (0.5-1.5); Estimated Glomerular Filt Rate 55 ml/min
== END 2025-04-12 14:36 | disposition home or self-care (01) ==
LOC: CT 14:36
PROVIDERS: PCP Family Medicine; Visit Provider Internal Medicine Nephrology
DX: N18.2 Chronic kidney disease, stage 2 (mild) (principal); N28.89 Other specified disorders of kidney and ureter; N28.1 Cyst of kidney, acquired
CPT/HCPCS: 36415; 74178; 82565; Q9967